=== PATIENT | male | born 1955 | race Caucasian/White ===

== ENCOUNTER 2016-10-17 09:30 | Emergency (ER) | payer BC ==
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
--- NOTE | 2016-10-17 13:36 | ED ORDER SUMMARY ---
..... Patient: CHRISTOPHE HILLS OrderSheet [facility] VisitID: [id number] [place] [address] 61y, M Registration Date/Time: 10/17/2016 ORDER SHEET Weight: 99.7 kg (stated) Allergies: Oxycodone GENERAL ORDERS: Elbow 3 or 4V Left Urgent (10:08 10/17/2016 Wale HAQUE) (Ack 10:08 LMuller) (10:21 MWinteryony R.N.) Splint (UE) (Left) (Dorsal) (Long Arm) (10:57 10/17/2016 Wale HAQUE) (10:59 LWhalsabina R.N.) MEDICATION ORDERS: IV FLUIDS: IV NS : initial bolus none -, then 250 mL/hr for 4h (NOW); Routine (11:20 10/17/2016 Wale HAQUE) (11:36 LWhalsabina R.N.) Dilaudid IV 0.5 mg (NOW) (11:10/17/2016 Wale HAQUE) (11:36 LWhalsabina R.N.) Ativan IV 0.5 mg (NOW) (11:10/17/2016 Wale HAQUE) (11:39 LWhalsabina R.N.) ORDER SHEET NOTES: [Electronically signed by Sylvain Cuellar MD (18:06 10/17/2016)] [Electronically signed by Blade Decker R.N. (19:14 10/17/2016)] [Electronically locked/signed by Blade Decker R.N. (19:14 10/17/2016)]
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
--- NOTE | 2016-10-17 13:36 | ED ORDER SUMMARY ---
..... Patient: CHRISTOPHE HILLS OrderSheet [facility] VisitID: [id number] [place] [address] 61y, M Registration Date/Time: 10/17/2016 ORDER SHEET Weight: 99.7 kg (stated) Allergies: Oxycodone GENERAL ORDERS: Elbow 3 or 4V Left Urgent (10:08 10/17/2016 Wale HAQUE) (Ack 10:08 LMuller) (10:21 MWinteryony R.N.) Splint (UE) (Left) (Dorsal) (Long Arm) (10:57 10/17/2016 Wale HAQUE) (10:59 LWhalsabina R.N.) MEDICATION ORDERS: IV FLUIDS: IV NS : initial bolus none -, then 250 mL/hr for 4h (NOW); Routine (11:20 10/17/2016 Wale HAQUE) (11:36 LWhalsabina R.N.) Dilaudid IV 0.5 mg (NOW) (11:10/17/2016 Wale HAQUE) (11:36 LWhalsabina R.N.) Ativan IV 0.5 mg (NOW) (11:10/17/2016 Wale HAQUE) (11:39 LWhalsabina R.N.) ORDER SHEET NOTES: [Electronically signed by Sylvain Cuellar MD (18:06 10/17/2016)] [Electronically signed by Blade Decker R.N. (19:14 10/17/2016)] [Electronically locked/signed by Blade Decker R.N. (19:14 10/17/2016)]
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
--- NOTE | 2016-10-17 19:14 | ED MAR SUMMARY ---
..... Medication Administration Record [facility] [address] [place] [address] Patient: CHRISTOPHE HILLS Visit ID: [id number] 61y, M Weight: 99.7 kg Height/Length: 72 in BMI: 29.8 ALLERGIES: Oxycodone Start 11:36 10/17/2016 Blade Decker R.N., Stop 12:45 10/17/2016 Blade Decker R.N. Medication Administered: IV NS (SALINE), Dose: IV Fluids over 1 hour(s), Rate: 1000 mL/hr, Dispensed: 1000 mL bag, Site: #1 right hand. Medication Ordered: IV NS : initial bolus none -, then 250 mL/hr for 4h (NOW); Routine. Given 11:36 10/17/2016 Blade Decker R.N. Medication Administered: DILAUDID [IVP] (HYDROMORPHONE HCL PF), Dose: 0.5 mg IVP over 1 minute(s), Site: #1 right hand. Medication Ordered: Dilaudid IV 0.5 mg (NOW). Given 11:39 10/17/2016 Blade Decker R.N. Medication Administered: ATIVAN [IVP] (LORAZEPAM), Dose: 0.5 mg IVP over 1 minute(s), Site: #1 right hand. Medication Ordered: Ativan IV 0.5 mg (NOW). Given 12:10/17/2016 Blade Decker R.N. Medication Administered: DILAUDID [IVP] (HYDROMORPHONE HCL PF), Dose: 0.5 mg IVP over 2 minute(s), Site: #1 right hand. Medication Ordered: Dilaudid IV 0.5 mg (NOW).
--- NOTE | 2016-10-17 19:14 | ED MAR SUMMARY ---
..... Medication Administration Record [facility] [address] [place] [address] Patient: CHRISTOPHE HILLS Visit ID: [id number] 61y, M Weight: 99.7 kg Height/Length: 72 in BMI: 29.8 ALLERGIES: Oxycodone Start 11:36 10/17/2016 Blade Decker R.N., Stop 12:45 10/17/2016 Blade Decker R.N. Medication Administered: IV NS (SALINE), Dose: IV Fluids over 1 hour(s), Rate: 1000 mL/hr, Dispensed: 1000 mL bag, Site: #1 right hand. Medication Ordered: IV NS : initial bolus none -, then 250 mL/hr for 4h (NOW); Routine. Given 11:36 10/17/2016 Blade Decker R.N. Medication Administered: DILAUDID [IVP] (HYDROMORPHONE HCL PF), Dose: 0.5 mg IVP over 1 minute(s), Site: #1 right hand. Medication Ordered: Dilaudid IV 0.5 mg (NOW). Given 11:39 10/17/2016 Blade Decker R.N. Medication Administered: ATIVAN [IVP] (LORAZEPAM), Dose: 0.5 mg IVP over 1 minute(s), Site: #1 right hand. Medication Ordered: Ativan IV 0.5 mg (NOW). Given 12:10/17/2016 Blade Decker R.N. Medication Administered: DILAUDID [IVP] (HYDROMORPHONE HCL PF), Dose: 0.5 mg IVP over 2 minute(s), Site: #1 right hand. Medication Ordered: Dilaudid IV 0.5 mg (NOW).
--- NOTE | 2016-10-17 19:14 | ED MED RECONCILIATION SUMMARY ---
Patient: CHRISTOPHE HILLS Medication Reconciliation Report [facility] VisitID: [id number] [address] [place] [address] 61y, M Registration Date/Time: 10/17/2016 Weight: 99.7 kg Height/Length: 72 in. BMI: 29.8 ALLERGIES: Oxycodone The patient's Home Medications are listed below: THE FOLLOWING MEDICATIONS NEED TO BE RECONCILED: [place] Thyroid Oral Vitamins/Minerals Oral The source(s) of the original Home Medication information: Not obtained. The following Medications were given to the patient in the Emergency Department: IV NS IV Fluids bolus 0, then 1000 mL/hr, administered: 10/17/2016 11:36:00 AM Dilaudid [IVP] IVP 0.5 mg, administered: 10/17/2016 11:36:00 AM Ativan [IVP] IVP 0.5 mg, administered: 10/17/2016 11:39:00 AM Dilaudid [IVP] IVP 0.5 mg, administered: 10/17/2016 12:22:00 PM The following Medications were prescribed to the patient: None.
--- NOTE | 2016-10-17 19:14 | ED MED RECONCILIATION SUMMARY ---
Patient: CHRISTOPHE HILLS Medication Reconciliation Report [facility] VisitID: [id number] [address] [place] [address] 61y, M Registration Date/Time: 10/17/2016 Weight: 99.7 kg Height/Length: 72 in. BMI: 29.8 ALLERGIES: Oxycodone The patient's Home Medications are listed below: THE FOLLOWING MEDICATIONS NEED TO BE RECONCILED: [place] Thyroid Oral Vitamins/Minerals Oral The source(s) of the original Home Medication information: Not obtained. The following Medications were given to the patient in the Emergency Department: IV NS IV Fluids bolus 0, then 1000 mL/hr, administered: 10/17/2016 11:36:00 AM Dilaudid [IVP] IVP 0.5 mg, administered: 10/17/2016 11:36:00 AM Ativan [IVP] IVP 0.5 mg, administered: 10/17/2016 11:39:00 AM Dilaudid [IVP] IVP 0.5 mg, administered: 10/17/2016 12:22:00 PM The following Medications were prescribed to the patient: None.
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
== END 2016-10-17 13:48 | disposition short-term general hospital (02) ==
LOC: ED SRH 09:30
DX: S52.122A Displaced fracture of head of left radius, initial encounter for closed fracture (principal); S00.93XA Contusion of unspecified part of head, initial encounter; V18.4XXA Pedal cycle driver injured in noncollision transport accident in traffic accident, initial encounter; Y92.410 Unspecified street and highway as the place of occurrence of the external cause; Y93.55 Activity, bike riding; Y99.9 Unspecified external cause status; F17.290 Nicotine dependence, other tobacco product, uncomplicated; Z88.5 Allergy status to narcotic agent